=== PATIENT | male | born 1985 | race Hispanic/Latino ===

== ENCOUNTER 2023-12-08 08:38 | Emergency (ER) | payer SELFPAY ==
[2023-12-08 08:40] VITALS: BP 144/89
[2023-12-08 08:53] VITALS: BP 126/80; BMI 37.1
[2023-12-08] MEDS: DECADRON 10 MG PO (09:07)
[2023-12-08] MEDS: DECADRON 8 MG PO (09:07)
[2023-12-08] MEDS: DUONEB 3 ML INH (09:09)
--- NOTE | 2023-12-08 09:13 | ED.GENMED ---
History of Present Illness
General
Chief Complaint: Cold/Flu/URI Symptoms
Source: patient
Exam Limitations: none
Time Seen by Provider: 12/08/23 08:45
Nursing documentation reviewed up to this point in time: agreed with
History of Present Illness
History of Present Illness:
38-year-old male without known medical history presenting to the emergency department today with concerns of coughing sore throat worsening over the past month associated shortness of breath. Thinks he may have been having intermittent fevers as
well. Denies nausea vomiting change in bowel movements.
Review of Systems
Review of Systems
Allergies reviewed?: Yes
All Other Systems: ROS reviewed and negative except as documented in HPI and ROS
Phy Exam
Physical Exam
Physical Exam:
GENERAL: Alert , in no apparent distress
EYE: pupils equal and reactive
NECK: Supple, no significant adenopathy.
ENT: o/p clr, mmm.
CARDIAC: Regular rate and rhythm .
LUNGS: Clear breath sounds bilaterally, no acute respiratory distress, no wheezes/rales/rhonchi
ABDOMEN: Soft, without focal tenderness, no r/g, no cvat
NEUROLOGICAL: Alert and oriented, no focal neuro deficits
SKIN: Warm and dry, skin intact.
MUSCULOSKELETAL: No edema, well perfused.
PSYCH: Normal and appropriate interaction.
Course
Orders/Labs/Results
Orders:
Orders
12/08/23 08:58
Dexamethasone [Decadron] 10 mg PO NOW STA
Ipratropium/Albuterol Sulfate [Duoneb] 3 ml INH R NOW ONE
Chest [CR Chest - 2 Views ] Urgent
Comment:
Reason For Exam: cough
12/08/23 09:33
EKG [Electrocardiogram (*1)] Urgent
Reason for Study: Shortness of Breath
EKG- Treatment ONCE
12/08/23 10:11
BMP [Basic Metabolic Panel] Urgent
CBC/With Diff [Complete Blood Count/With Diff] Urgent
Pro-BNP [NT-proBNP] Urgent
Troponin I Urgent
Abnormal Lab Results
12/08/23
10:11
RBC 4.53 L 10^6/uL
(4.70-6.10)
Hct 38.8 L %
(39.0-52.0)
Creatinine 0.5 L mg/dL
(0.7-1.3)
12/08/23 10:11
12/08/23 10:11
Vital Signs
Initial and Last Documented VS:
Initial Vital Signs
Temp Pulse Resp BP Pulse Ox
99.6 F 102 22 144/89 97
12/08/23 08:40 12/08/23 08:40 12/08/23 08:40 12/08/23 08:40 12/08/23 08:40
Last Documented Vital Signs
Temp Pulse Resp BP Pulse Ox
99.5 F 86 18 112/72 96
12/08/23 08:53 12/08/23 12:00 12/08/23 12:00 12/08/23 12:00 12/08/23 12:00
MDM/Problems Addressed
MDM/Problems Addressed:
38-year-old male presenting to the emergency department today with concerns of 1 month of cough worsening over the past few days with intermittent subjective fevers. Upon arrival temperature is borderline no meds prior to arrival heart rate in the
80s. Patient did have some degree of very end expiratory intermittent wheezing concern this was given a steroid as well as nebulizer treatment. Initial chest x-ray was performed that showed potential pulmonary edema raising concern for possible
cardiac etiology. Concerning this additional labs and EKG ordered. Labs normal BMP normal troponin normal. Case discussed with cardiology considering the findings of pulmonary edema. Patient will follow-up for further assessment of this
otherwise stable throughout ER stay normal heart rate normal pulse ox stable for discharge return precautions given.
*Critical Care Note
Total Time (30-74mins, 75-104mins- exclusive of procedures): Not Applicable
ED Attending Note
-
Portions of this chart may have been created with voice recognition software.� Occasional wrong word or��sound alike� substitutions may have occurred due to the inherent limitations of voice recognition software.
Discharge Plan
Departure
Patient Disposition: Home (Routine Discharge)
Date of Disposition: 12/08/23
Time of Disposition: 12:32
Patient with high blood pressure during this ER visit?: No
Condition: Good
Covid-19: Not Applicable
Discharge Problem:
Bronchitis, Pulmonary edema
Instructions: Chest Pain [facility] Follow Up
Referrals:
Dixon Keller MD [Active] - Follow up in 5-7 days
NONE,* [Family Provider] -
Activity Restrictions/Additional Instructions:
You came to the emergency department today with concerns of cough. This could be a reactive airway to a viral syndrome. You are found to have some abnormalities to your chest x-ray it is important follow-up closely with cardiology. Return to the
emergency department for any worsening, new or concerning symptoms.
Interventions
Interventions:
*Risk Screen - Suicide Last Done: 12/08/23 08:41
*General Assessment Last Done: 12/08/23 08:53
*Neglect/Abuse Screening Last Done: 12/08/23 08:41
ED- Fall Risk Assessment Last Done: 12/08/23 08:53
*ED COVID-19 Vaccine History Last Done: 12/08/23 08:53
ED- Pulmonary Assessment Last Done: 12/08/23 08:53
Discharge Date and Time
Print Language: ARGENT[place]
[2023-12-08 10:13] VITALS: BP 126/76
[2023-12-08 10:34] LABS: % Basophils 0.6 % (0-2); % Eosinophils 1.7 % (0-6); % Immature Granulocytes 0.2 % (0-0.5); % Lymphocytes 38.6 % (20.5-51.1); % Monocytes 7.6 % (1.7-9.3); % Neutrophils 51.3 % (42.2-75.2); Absolute Basophils 0.1 10^3/uL (0-0.2); Absolute Eosinophils 0.1 10^3/uL (0-0.7); Absolute Lymphocytes 3.3 10^3/uL (1.2-3.4); Absolute Monocytes 0.6 10^3/uL (0.1-0.6); Absolute Neutrophils 4.3 10^3/uL (1.4-6.5); Hematocrit 38.8 % (39.0-52.0); Hemoglobin 13.6 g/dL (13.0-18.0); Mean Corp Hgb Conc. 35.1 g/dL (33.0-37.0); Mean Corpuscular Volume 85.7 fL (80.0-94.0); Mean Platelet Volume 9.6 fL (7.4-10.4); Nucleated Red Blood Cells % 0 % (-); Platelet Count 205 10^3/uL (130-400); Red Blood Cell Count 4.53 10^6/uL (4.70-6.10); Red Cell Dist. Width 11.9 % (11.5-14.5); White Blood Cell Count 8.4 10^3/uL (4.8-10.8)
[2023-12-08 10:50] LABS: Blood Urea Nitrogen 11 mg/dl (9-20); Carbon Dioxide 28 mmol/L (22-30); Chloride 103 mmol/L (98-107); Estimated Creatinine Clearance > 125 ml/min; Glucose 95 mg/dl (70-99); Potassium 4.2 mmol/L (3.5-5.1); Sodium 139 mmol/L (135-145); eGFR > 60.00
[2023-12-08 11:00] LABS: NT-proBNP 40.2 pg/ml; Troponin I < 0.012 ng/ml
[2023-12-08 12:00] VITALS: BP 112/72
== END 2023-12-08 12:59 | disposition home or self-care (01) ==
LOC: EMR 08:38
PROVIDERS: Physician Assistant; EMERGENCY PHYSICIAN Student in an Organized Health Care Education/Training Program
DX: J40 Bronchitis, not specified as acute or chronic (principal); J81.1 Chronic pulmonary edema
CPT/HCPCS: 99285; 94640; 71046; 80048; 83880; 84484; 85025; 93005